=== PATIENT | female | born 1990 | race African-American/Black ===

== ENCOUNTER 2017-08-01 10:50 | Day surgery (SDC) | payer BC, MEDICAID ==
[~2017-08-01 10:50] MED LIST: CEFAZOLIN 1 GM/D5W RTU 1 GM/50 ML RTUPB IV PRN
[2017-08-01] MEDS ORDERED: LIDOCAINE 2% INJ (20 MG/ML) 20 ML MDV ONE (12:11)
[2017-08-01] MEDS ORDERED: NORMAL SALINE INJ/PF 0.9% 10 ML SDV ONE (12:12)
[2017-08-01] MEDS ORDERED: POLYMYXIN B SULFATE INJ 500000 UNIT VIAL ONE (12:12)
[2017-08-01] MEDS ORDERED: BUPIVACAINE HCL 0.5 % INJ/PF 30 ML SDV ONE (12:12)
[2017-08-01] MEDS ORDERED: BACITRACIN INJ 50,000 UNIT VIAL ONE (12:12)
[2017-08-01] MEDS ORDERED: MIDAZOLAM 2 MG/2 ML INJ ONE (12:17)
[2017-08-01] MEDS ORDERED: DIPHENHYDRAMINE HCL 50 MG/ML VIAL ONE (12:17)
[2017-08-01] MEDS ORDERED: FENTANYL CITRATE INJ/PF 100 MCG/2 ML AMPUL ONE (12:17)
[2017-08-01] MEDS ORDERED: KETOROLAC TROMETHAMINE 60 MG/2 ML SDV ONE (12:18)
[2017-08-01] MEDS ORDERED: PROPOFOL INJ 200 MG/20 ML VIAL IV ONE (12:18)
--- NOTE | 2017-08-01 13:59 | SURGICARE DISCHARGE SUMMARY E ---
[facility] Discharge Summary NAME: ASCENCION CHEN AGE: 27Y ADMITTED: 08/01/2017 DISCHARGED: 08/01/2017 SURGICAL PROCEDURE: Arthroplasty at the distal interphalangeal joint, fourth digit, right foot. POSTOPERATIVE DIAGNOSIS: Mallet toe deformity, fourth digit, right foot. SURGEON: Francisco Brown DPM [employer] WORKER: Elias Bauer DPM HOSPITAL COURSE: The patient was admitted to [facility] with chief complaint of a painful fourth toe on her right foot. She stated she was getting a corn on it and that whenever she wore her shoe it rubbed on top of her shoe and was sore. Patient desired to have this problem surgically corrected and underwent the above surgical procedure without any complications. She was transferred to the recovery room. Patient was discharged with an ice pack, a surgical shoe, postoperative instructions, and postoperative prescription for Percocet 5 mg/325 mg #40 and Phenergan 25 mg #20. She has a follow-up appointment in doctor's office in 1 week and she was discharged from [facility]. DICTATING PHYSICIAN: FRANCISCO BROWN D.P.M. [id number] PHY#: [id number] ID: [id number] JOB#: [id number] ACCT: [id number] cc:FRANCISCO BROWN DPM >
--- NOTE | 2017-08-01 14:04 | SURGICARE OPERATIVE REPORT E ---
[facility] NAME: ASCENCION CHEN AGE: 27Y DATE OF SURGERY: 08/01/2017 ROOM: PREOPERATIVE DIAGNOSIS: Mallet toe deformity fourth digit, right foot. POSTOPERATIVE DIAGNOSIS: Mallet toe deformity fourth digit, right foot. SURGICAL PROCEDURE: Arthroplasty at the distal interphalangeal joint fourth digit, right foot. SURGEON: FRANCISCO MORALES DPM PSYCHIATRIC LPN: SHOBHA AUGUSTIN DPM PROCEDURE: Following induction of IV regional local anesthesia, the right foot and leg were prepped and draped in the usual sterile manner. Pneumatic tourniquet was placed around the right ankle and inflated to 250 mmHg after exsanguination of the limb via Esmarch bandage. The following surgical procedure was then performed: Arthroplasty of the distal interphalangeal joint fourth digit right foot. Attention was directed to the dorsal aspect of the fourth toe of the right foot where a semi-elliptical incision was made at the distal interphalangeal joint. The resulting skin wedge was removed en toto from the wound. The extensor digitorum longus tendon was sharply incised in a transverse fashion and it was freed from the proximal aspect of the bone. The hypertrophied head of the middle phalanx was freed from its soft tissue attachments via sharp dissection. Utilizing Patrick bone cutting forceps, the hypertrophied head of the middle phalanx was osteotomized perpendicular to the long axis of the bone and removed en toto from the wound. The head of the middle phalanx was then rasped smooth utilizing a handheld crosscut rasp. The attention was directed to the plantar aspect of the wound, and utilizing sharp dissection, the plantar plate was excised. The area was then flushed with copious amounts of antibacterial saline solution. The extensor digitorum longus tendon was then sutured plantarly into the flexor digitorum longus tendon utilizing simple interrupted suture of 3-0 Vicryl. The extensor digitorum longus tendon was then sutured medially and laterally utilizing simple interrupted sutures of 3-0 Vicryl. The skin was then coapted and maintained utilizing horizontal mattress sutures of 5-0 nylon. A dry sterile dressing was then applied consisting of Cecil silk, 4 x 4s, Conform, Kerlix, and Coban. Pneumatic tourniquet was released. It was noted that all digits were warm and viable, and the patient was transferred to the recovery room. DICTATING PHYSICIAN: FRANCISCO MORALES D.P.M. [id number] PHY#: [id number] ID: [id number] JOB#: [id number] ACCT: [id number] cc:FRANCISCO MORALES DPM > KIMBERLEE
== END 2017-08-01 14:33 | disposition home or self-care (01) ==
LOC: SC 10:50
PROVIDERS: ATTEND Podiatrist Foot Surgery
PROC: 0SQP0ZZ Repair Right Toe Phalangeal Joint, Open Approach (ICD-10-PCS; principal; 2017-08-01 12:00)
DX: M20.41 Other hammer toe(s) (acquired), right foot (principal); Z88.2 Allergy status to sulfonamides
CPT/HCPCS: 28285; J2250; J3490 ×5; J0690; J1200; J1885; J3010; J2704; 1480

== ENCOUNTER → 2020-06-11 | Outpatient (CLI) | payer OTHER ==
[2020-06-11 11:24] LABS: ABSOLUTE LYMPHOCYTES (AUTO) 1.5 10^3/uL (0.5-4.7); ABSOLUTE MONOCYTES (AUTO) 0.4 10^3/uL (0.1-1.4); ABSOLUTE NEUT (AUTO) 1.3 10^3/uL (1.7-8.2); BASOPHILS % (AUTO) 1.3 % (0-2); EOSINOPHILS % (AUTO) 0.9 % (0-6); HEMATOCRIT 30.2 % (36.0-47.0); HEMOGLOBIN 9.7 g/dL (12.0-15.5); LYMPHOCYTES % (AUTO) 46.5 % (13-45); MEAN CORPUSCULAR HEMOGLOBIN 24.2 pg (27.0-33.4); MEAN CORPUSCULAR HGB CONC 32.3 g/dL (32.0-36.0); MEAN CORPUSCULAR VOLUME 75 fl (80-97); MONOCYTES % (AUTO) 10.9 % (3-13); PLATELET COUNT 198 10^3/uL (150-450); RED BLOOD COUNT 4.03 10^6/uL (3.72-5.28); RED CELL DISTRIBUTION WIDTH 17.2 % (11.5-14.0); SEGMENTED NEUTROPHILS % (AUTO) 40.4 % (42-78); TOTAL CELLS COUNTED % (AUTO) 100 %; WHITE BLOOD COUNT 3.3 10^3/uL (4.0-10.5)
[2020-06-11 11:38] LABS: APPEARANCE,URINE CLEAR; BILIRUBIN,URINE NEGATIVE (NEGATIVE); COLOR,URINE STRAW; GLUCOSE, URINE NEGATIVE (NEGATIVE); KETONES,URINE TRACE mg/dL (NEGATIVE); LEUKOCYTE ESTERASE,URINE NEGATIVE (NEGATIVE); NITRITE,URINE NEGATIVE (NEGATIVE); PROTEIN,URINE NEGATIVE (NEGATIVE); URINE SPECIFIC GRAVITY 1.004; UROBILINOGEN,URINE NEGATIVE mg/dL (<2.0)
[2020-06-11 11:48] LABS: ALBUMIN 4.2 g/dL (3.5-5.0); ALKALINE PHOSPHATASE 57 U/L (38-126); ANION GAP 8 (5-19); ASPARTATE AMINO TRANSFERASE 31 U/L (14-36); BILIRUBIN,DIRECT 0.1 mg/dL (0.0-0.4); BILIRUBIN,TOTAL 0.4 mg/dL (0.2-1.3); BLOOD UREA NITROGEN 3 mg/dL (7-20); CALCIUM 9.5 mg/dL (8.4-10.2); CARBON DIOXIDE 25 mmol/L (22-30); CHLORIDE 105 mmol/L (98-107); CHOLESTEROL 179.34 mg/dL (0-200); GLUCOSE 87 mg/dL (75-110); POTASSIUM 4.8 mmol/L (3.6-5.0); TOTAL PROTEIN 7.4 g/dL (6.3-8.2); TRIGLYCERIDES 61 mg/dL (<150)
[2020-06-11 12:00] LABS: DIRECT LDL 88 mg/dL (<100)
[2020-06-11 12:06] LABS: FREE T4 (FREE THYROXINE) 1.14 ng/dL (0.78-2.19)
[2020-06-11 12:20] LABS: THYROID STIMULATING HORMONE 0.92 uIU/mL (0.47-4.68)
== END ==
LOC: CCC 09:45
PROVIDERS: ATTEND Family Medicine
DX: D64.9 Anemia, unspecified (principal)
CPT/HCPCS: 36415; 80053; 80061; 81001; 83036; 84436; 84439; 84443; 85025